=== PATIENT | male | born 1995 | race Caucasian/White ===

== ENCOUNTER 2016-11-30 15:31 | Emergency (ER) | payer OTHER ==
[2016-11-30 15:44] VITALS: BP 142/104
[2016-11-30] MEDS ORDERED: Lidocaine 1% 50 ML MDV INJECT ONE (15:51)
--- NOTE | 2016-11-30 16:33 | CR ---
Left second finger: Four views of the left second finger were obtained. Soft tissue swelling is identified. No acute fracture, dislocation or other bony abnormality is seen. Impression: 1. Soft tissue swelling. No acute bony abnormality is identified on left second finger study. Diagnostic code #2
--- NOTE | 2016-11-30 17:10 | EDM.PDOC ---
ED HPI GENERAL MEDICAL PROBLEM - General Chief Complaint: Upper Extremity Injury/Pain Stated Complaint: L INDEX FINGER INJURY Time Seen by Provider: 11/30/16 15:41 Source of Information: Reports: Patient History Limitations: Reports: No Limitations - History of Present Illness INITIAL COMMENTS - FREE TEXT/NARRATIVE: The patient presents with left index finger pain and laceration. He was working on a work over rig and this left index finger was hit by the tongs. He had that same finger injured a few years ago on a work over rig. His tetanus is up to date. He is right handed. 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 Onset: Sudden Duration: Minutes: Location: Reports: Upper Extremity, Left (Index finger) Quality: Reports: Sharp Severity: Moderate Improves with: Reports: None Worsens with: Reports: Movement Context: Reports: Activity (Crushed by the tongs on a work over rig) Associated Symptoms: Reports: No Other Symptoms Left Hand Pain Score (Numeric/FACES): 0 - Related Data Allergies Allergy/AdvReac Type Severity Reaction Status Date / Time No Known Allergies Allergy Verified 11/30/16 15:40 Home Meds: Home Meds . [No Known Home Meds] 11/30/16 [History] Past Medical History - Past Health History Medical/Surgical History: Denies Medical/Surgical History Social & Family History - Recreational Drug Use Recreational Drug Use: No Review of Systems - Review of Systems Review Of Systems: Unable To Obtain Constitutional: Reports: No Symptoms Eyes: Reports: No Symptoms Ears: Reports: No Symptoms Nose: Reports: No Symptoms Mouth/Throat: Reports: No Symptoms Respiratory: Reports: No Symptoms Cardiovascular: Reports: No Symptoms GI/Abdominal: Reports: No Symptoms Genitourinary: Reports: No Symptoms Musculoskeletal: Reports: Other (Left index finger crush injury) ED EXAM, GENERAL - Physical Exam Exam: See Below Exam Limited By: No Limitations General Appearance: Alert, No Apparent Distress Ears: Normal External Exam Nose: Normal Inspection Head: Atraumatic, Normocephalic Neck: Normal Inspection Respiratory/Chest: No Respiratory Distress Extremities: Other (2.5cm laceration to the volar aspect of the 2nd finger of the left hand. He can move his finger. He has some numbness to the distal finger. There is an old injury to the finger with the tip flexed.) ED TRAUMA EXTREMITY PROCEDURES - Laceration/Wound Repair Left Finger Lac/Wound Length In cm: 2.5 Appearance: Subcutaneous, Linear Distal NVT: No Tendon Injury, Other (Mild numbness) Anesthetic Type: Digital Local Anesthesia - Lidocaine (Xylocaine): 1% Plain Local Anesthetic Volume: 3cc Skin Prep: Saline Exploration/Debridement/Repair: Wound Explored, In a Bloodless Field, Explored to Base Closed With: Sutures Suture Size: 4-0 # of Sutures: 3 Suture Type: Nylon, Interrupted, Simple Tetanus Status Addressed: Yes Complications: No Course - Vital Signs Last Recorded V/S: Last Vital Signs Temp 97.3 F 11/30/16 15:40 Pulse 80 11/30/16 15:40 Resp 16 11/30/16 15:40 BP 142/104 H 11/30/16 15:40 Pulse Ox 97 11/30/16 15:40 - Orders/Labs/Meds Meds: Medications Discontinued Medications Generic Name Dose Route Start Last Admin Trade Name Freq PRN Reason Stop Dose Admin Lidocaine HCl 50 ml 11/30/16 15:51 11/30/16 16:34 Xylocaine 1% INJECT 11/30/16 15:52 50 ml ONETIME ONE Administration - Re-Assessments/Exams Free Text/Narrative Re-Assessment/Exam: 11/30/16 17:10 The x-ray of his finger does not show any fracture. I sutured his finger. Departure - Departure Time of Disposition: 17:15 Disposition: Home, Self-Care 01 Condition: Good Clinical Impression: Crushing injury of left index finger Qualifiers: Encounter type: initial encounter Qualified Code(s): S67.191A - Crushing injury of left index finger, initial encounter Laceration of left index finger Qualifiers: Encounter type: initial encounter Damage to nail status: without damage Foreign body presence: without foreign body Qualified Code(s): S61.211A - Laceration without foreign body of left index finger without damage to nail, initial encounter - Discharge Information Referrals: Kizzy Ellison PA [Physician Auxiliary Engineer] - 1 Week Forms: ED Department Discharge, ED Return to Work/School Form Additional Instructions: Soak your finger in warm soapy water 2 times per day and apply antibiotics after. Have the sutures removed in 1 week. Look for any sign of infection such as redness, swelling, pain or drainage and see your doctor or return here.
== END 2016-11-30 17:15 | disposition home or self-care (01) ==
LOC: JD.ED 15:31
DX: S67.191A Crushing injury of left index finger, initial encounter (principal); S61.211A Laceration without foreign body of left index finger without damage to nail, initial encounter; W22.8XXA Striking against or struck by other objects, initial encounter
CPT/HCPCS: 12001; 73140-26-F1; 73140-F1; 99282; 99283-25